=== PATIENT | male | born 1945 | race Caucasian/White ===

== ENCOUNTER 2023-07-31 17:02 | Inpatient (IN) | payer MEDICARE ==
[2023-07-31 18:05] LABS: #Monocytes 0.4 thou/uL (0.11-0.59); #Neutrophils 7.3 thou/uL (1.40-6.50); %Basophils 0.5 % (0.0-1.0); %Eosinophils 0.1 % (0.0-10.0); %Monocytes 5.1 % (0.0-10.0); %Neutrophils 86.9 % (42.0-75.0); Hematocrit 18.7 % (42.0-52.0); Hemoglobin 6.3 g/dL (14.0-18.0); Mean Corpuscular HGB CONC 33.7 g/dL (32.0-36.0); Mean Corpuscular Hemoglobin 30.6 pg (27.0-31.0); Mean Corpuscular Volume 90.8 fl (78.0-98.0); Mean Platelet Volume 9.4 fL (7.4-10.4); Platelet Count 332 10x3/uL (130-400); RBC Distribution Width 13.1 % (11.5-14.5); Red Blood Cell (RBC) Count 2.06 mill/uL (4.70-6.10); White Blood Cell (WBC) Count 8.4 10x3/uL (4.8-10.8)
[2023-07-31 18:21] LABS: INR-International Normal Ratio 1.2; PTT 26.5 sec (22.9-36.1); Prothrombin Time 15.2 sec (12.0-14.7)
[2023-07-31 18:22] LABS: D-Dimer Test 3.85 mcg/mL (0.27-0.43)
[2023-07-31 18:29] LABS: ALT (SGPT) 8 U/L (8-55); AST (SGOT) 10 U/L (5-34); Albumin 4.5 g/dL (3.4-4.8); Alkaline Phosphatase 59 U/L (40-110); Anion Gap 19 mmol/L (10-20); BUN (Urea Nitrogen) 89 mg/dL (8.4-25.7); Bilirubin, Total 0.3 mg/dL (0.2-1.2); Calc. Creatinine Clearance 0 mL/min (70-130); Calcium 10.3 mg/dL (7.8-10.44); Carbon Dioxide 15 mmol/L (23-31); Chloride 108 mmol/L (98-107); Estimated GFR 9; Globulin 2.9 g/dL (2.4-3.5); Glucose 188 mg/dL (83-110); Potassium 5.4 mmol/L (3.5-5.1); Protein, Total 7.4 g/dL (5.8-8.1); Sodium 137 mmol/L (136-145)
[2023-07-31 18:33] LABS: Troponin I 0.015 ng/mL (< 0.028)
[2023-07-31] MEDS ORDERED: Furosemide 100 MG (10 mL) VIAL ONE (19:24)
[2023-07-31 21:04] LABS: Bacteria/HPF None Seen HPF (None Seen); Bilirubin Negative (Negative); Blood, Urine Negative (Negative); CAUTI Indications for Culture Pelvic or flank pain; Clarity Clear (Clear); Glucose, Urine (Dipstick) 30 mg/dL (Negative); Ketone, Urine Negative (Negative); Leukocyte Negative Leu/uL (Negative); Nitrite Negative (Negative); Protein, Urine (Dipstick) 10 mg/dL (Neg-Trace); RBC/HPF 0-3 HPF (0-3); Specific Gravity, Urine 1.008 (1.002-1.036); Squamous Epithelial None Seen HPF (0-3); Urobilinogen Normal mg/dL (Less than 2); WBC/HPF 0-3 HPF (0-3); pH, Urine 6.5 (5.0-9.0)
[2023-07-31 21:06] LABS: Urine Culture Reflex No No
[2023-07-31] MEDS ORDERED: Senokot S 8.6-50 MG TAB PO PRN (21:54)
[2023-07-31 21:56] LABS: Troponin I 0.026 ng/mL (< 0.028)
[2023-07-31] MEDS: Tamsulosin HCl 0.4 MG CAP PO SCH (22:37)
[2023-08-01] MEDS: fentaNYL 50 mcg/mL 1 mL Vial SLOW IVP SCH (00:26)
[2023-08-01 00:44] LABS: Troponin I 0.019 ng/mL (< 0.028)
[2023-08-01] MEDS: Pantoprazole 40 MG VIAL IVP SCH ×2 (00:57→10:21)
[2023-08-01] MEDS ORDERED: fentaNYL 50 mcg/mL 1 mL Vial SLOW IVP PRN (01:01)
[2023-08-01 05:46] LABS: #Monocytes 1.3 thou/uL (0.11-0.59); #Neutrophils 10.5 thou/uL (1.40-6.50); %Basophils 0.2 % (0.0-1.0); %Eosinophils 0.1 % (0.0-10.0); %Lymphocytes 9.4 % (21.0-51.0); %Monocytes 9.7 % (0.0-10.0); %Neutrophils 80.1 % (42.0-75.0); Hematocrit 19.2 % (42.0-52.0); Hemoglobin 6.3 g/dL (14.0-18.0); Mean Corpuscular HGB CONC 32.8 g/dL (32.0-36.0); Mean Corpuscular Volume 91.4 fl (78.0-98.0); Platelet Count 295 10x3/uL (130-400); RBC Distribution Width 13.2 % (11.5-14.5); White Blood Cell (WBC) Count 13.1 10x3/uL (4.8-10.8)
[2023-08-01 06:00] LABS: Hemoglobin A1c 5.1 % (4.0-6.0)
[2023-08-01 06:15] LABS: Albumin 3.8 g/dL (3.4-4.8)
[2023-08-01 06:16] LABS: Chloride 113 mmol/L (98-107); Potassium 5.5 mmol/L (3.5-5.1); Sodium 139 mmol/L (136-145)
[2023-08-01 06:17] LABS: Calcium 9.1 mg/dL (7.8-10.44)
[2023-08-01 06:18] LABS: Globulin 2.2 g/dL (2.4-3.5); Glucose 153 mg/dL (83-110)
[2023-08-01 06:19] LABS: Anion Gap 17 mmol/L (10-20); Carbon Dioxide 15 mmol/L (23-31)
[2023-08-01 06:20] LABS: Alkaline Phosphatase 45 U/L (40-110)
[2023-08-01 06:21] LABS: Calc. Creatinine Clearance 11 mL/min (70-130); Estimated GFR 9
[2023-08-01 06:22] LABS: BUN (Urea Nitrogen) 88 mg/dL (8.4-25.7)
[2023-08-01 06:23] LABS: AST (SGOT) 8 U/L (5-34)
[2023-08-01 06:24] LABS: ALT (SGPT) 7 U/L (8-55)
[2023-08-01 06:25] LABS: Cardiac Risk 3.8 (Less than 4.5)
[2023-08-01 06:29] LABS: Bilirubin, Total 0.6 mg/dL (0.2-1.2)
[2023-08-01 06:32] LABS: Ferritin 88.26 ng/mL (22-322); Thyroid Stimulating Hormone 0.8644 uIU/mL (0.35-4.94)
[2023-08-01 06:57] LABS: Iron 36 ug/dL (65-175); Iron Binding Capacity, Total 241 mcg/dL (261-462); Transferrin, Serum 193 mg/dL (163-344)
[2023-08-01 07:55] LABS: Hematocrit 21.2 % (42.0-52.0)
[2023-08-01] MEDS ORDERED: Furosemide 40 MG (4 mL) VIAL SLOW IVP SCH (09:00)
[2023-08-01] MEDS ORDERED: Amlodipine 10 MG TAB PO SCH (09:00)
[2023-08-01] MEDS: Sodium Polystyrene Sulfonate 15 GM (60 mL) BOT PO SCH (10:21)
[2023-08-01] MEDS: Tamsulosin HCl 0.4 MG CAP PO SCH (10:25)
[2023-08-01 11:52] LABS: Hematocrit 21.6 % (42.0-52.0); Hemoglobin 7.1 g/dL (14.0-18.0); Platelet Count 292 10x3/uL (130-400)
[2023-08-01 12:09] LABS: Sodium, Urine 95 mmol/L (Not Available)
[2023-08-01 12:12] LABS: Creatinine, Urine Less than 20.00 mg/dL (63-166)
[2023-08-01 16:23] LABS: Hematocrit 17.2 % (42.0-52.0); Hemoglobin 5.7 g/dL (14.0-18.0); Platelet Count 221 10x3/uL (130-400)
[2023-08-01 16:25] LABS: Critical Call w/ Read Back NUR.CK7@1625
[2023-08-01] MEDS: Rosuvastatin 20 MG TAB PO SCH (20:51)
[2023-08-01 23:43] LABS: #Monocytes 1.9 thou/uL (0.11-0.59); #Neutrophils 12.1 thou/uL (1.40-6.50); %Basophils 0.2 % (0.0-1.0); %Eosinophils 0.1 % (0.0-10.0); %Lymphocytes 7.2 % (21.0-51.0); %Monocytes 12.5 % (0.0-10.0); %Neutrophils 79.4 % (42.0-75.0); Hematocrit 22.9 % (42.0-52.0); Hemoglobin 7.8 g/dL (14.0-18.0); Mean Corpuscular HGB CONC 34.1 g/dL (32.0-36.0); Mean Corpuscular Hemoglobin 29.9 pg (27.0-31.0); Mean Platelet Volume 9.9 fL (7.4-10.4); Platelet Count 222 10x3/uL (130-400); RBC Distribution Width 14.6 % (11.5-14.5); Red Blood Cell (RBC) Count 2.61 mill/uL (4.70-6.10); White Blood Cell (WBC) Count 15.2 10x3/uL (4.8-10.8)
[2023-08-01 23:46] LABS: Mean Corpuscular Volume 87.7 fl (78.0-98.0)
[2023-08-01 23:57] LABS: Anion Gap 16 mmol/L (10-20); BUN (Urea Nitrogen) 86 mg/dL (8.4-25.7); Calc. Creatinine Clearance 12 mL/min (70-130); Calcium 8.1 mg/dL (7.8-10.44); Carbon Dioxide 14 mmol/L (23-31); Chloride 110 mmol/L (98-107); Estimated GFR 10; Glucose 119 mg/dL (83-110); Sodium 135 mmol/L (136-145)
[2023-08-02] MEDS: Furosemide 20 MG (2 mL) VIAL SLOW IVP SCH (00:39)
[2023-08-02] MEDS: Acetaminophen 325 MG TAB PO PRN (03:20)
[2023-08-02] MEDS: fentaNYL 50 mcg/mL 1 mL Vial SLOW IVP PRN (04:53)
[2023-08-02 05:21] LABS: #Monocytes 1.7 thou/uL (0.11-0.59); #Neutrophils 10.9 thou/uL (1.40-6.50); %Basophils 0.2 % (0.0-1.0); %Eosinophils 0.2 % (0.0-10.0); %Monocytes 11.9 % (0.0-10.0); Hematocrit 23.1 % (42.0-52.0); Hemoglobin 7.7 g/dL (14.0-18.0); Mean Corpuscular HGB CONC 33.3 g/dL (32.0-36.0); Mean Corpuscular Hemoglobin 29.1 pg (27.0-31.0); Mean Corpuscular Volume 87.2 fl (78.0-98.0); Mean Platelet Volume 10.2 fL (7.4-10.4); Platelet Count 213 10x3/uL (130-400); RBC Distribution Width 14.8 % (11.5-14.5); Red Blood Cell (RBC) Count 2.65 mill/uL (4.70-6.10); White Blood Cell (WBC) Count 13.8 10x3/uL (4.8-10.8)
[2023-08-02 05:36] LABS: Albumin 3.2 g/dL (3.4-4.8); Anion Gap 15 mmol/L (10-20); BUN (Urea Nitrogen) 86 mg/dL (8.4-25.7); BUN/Creatinine Ratio 15.14; Calc. Creatinine Clearance 12 mL/min (70-130); Calcium 8.2 mg/dL (7.8-10.44); Carbon Dioxide 16 mmol/L (23-31); Chloride 109 mmol/L (98-107); Estimated GFR 10; Glucose 127 mg/dL (83-110); Phosphorus 6.8 mg/dL (2.3-4.7); Potassium 4.8 mmol/L (3.5-5.1); Sodium 135 mmol/L (136-145)
[2023-08-02] MEDS ORDERED: Sodium Bicarbonate 2.5 MEQ/5 ML SDV ONE (09:25)
[2023-08-02] MEDS ORDERED: Iopamidol 100 ML FS ONE (09:41)
[2023-08-02] MEDS ORDERED: Sodium Chloride 0.9% 500 ML ONE (09:41)
[2023-08-02] MEDS ORDERED: Midazolam HCl 2 mg/2 ml Vial ONE (10:55)
[2023-08-02] MEDS ORDERED: fentaNYL 50 mcg/mL 1 mL Vial ONE (10:56)
[2023-08-02] MEDS: Finasteride 5 MG TAB PO SCH (13:02)
[2023-08-03 04:56] LABS: #Monocytes 1.6 thou/uL (0.11-0.59); #Neutrophils 9.8 thou/uL (1.40-6.50); %Basophils 0.2 % (0.0-1.0); %Eosinophils 0.3 % (0.0-10.0); %Lymphocytes 9.3 % (21.0-51.0); %Monocytes 12.3 % (0.0-10.0); %Neutrophils 77.3 % (42.0-75.0); Hematocrit 23.8 % (42.0-52.0); Hemoglobin 8.1 g/dL (14.0-18.0); Mean Corpuscular Hemoglobin 30.2 pg (27.0-31.0); Mean Corpuscular Volume 88.8 fl (78.0-98.0); Mean Platelet Volume 10.2 fL (7.4-10.4); Platelet Count 214 10x3/uL (130-400); RBC Distribution Width 14.6 % (11.5-14.5); Red Blood Cell (RBC) Count 2.68 mill/uL (4.70-6.10); White Blood Cell (WBC) Count 12.6 10x3/uL (4.8-10.8)
[2023-08-03 05:25] LABS: Albumin 3.1 g/dL (3.4-4.8); Anion Gap 16 mmol/L (10-20); BUN (Urea Nitrogen) 81 mg/dL (8.4-25.7); BUN/Creatinine Ratio 15.25; Calc. Creatinine Clearance 13 mL/min (70-130); Calcium 8.3 mg/dL (7.8-10.44); Carbon Dioxide 18 mmol/L (23-31); Chloride 107 mmol/L (98-107); Estimated GFR 10; Glucose 117 mg/dL (83-110); Phosphorus 6.4 mg/dL (2.3-4.7); Potassium 4.8 mmol/L (3.5-5.1); Sodium 136 mmol/L (136-145)
[2023-08-03] MEDS: Pantoprazole 40 MG VIAL IVP SCH (09:48)
[2023-08-03] MEDS: Calcium Acetate 667 MG CAP PO SCH (12:33)
[2023-08-03] MEDS ORDERED: Iopamidol 100 ML FS ONE (13:20)
[2023-08-03] MEDS ORDERED: Sodium Chloride 0.9% 500 ML ONE (13:25)
[2023-08-03] MEDS ORDERED: Sodium Bicarbonate 2.5 MEQ/5 ML SDV ONE (14:18)
[2023-08-03] MEDS ORDERED: Lidocaine 1% PF 5 ML VIAL ONE (14:18)
[2023-08-04 06:43] LABS: #Basophils 0.1 thou/uL (0.0-0.2); #Eosinphils 0.2 thou/uL (0.0-0.7); #Monocytes 1.7 thou/uL (0.11-0.59); #Neutrophils 9.7 thou/uL (1.40-6.50); %Basophils 0.5 % (0.0-1.0); %Eosinophils 1.3 % (0.0-10.0); %Lymphocytes 9.1 % (21.0-51.0); %Monocytes 13.2 % (0.0-10.0); %Neutrophils 75.1 % (42.0-75.0); Hematocrit 22.4 % (42.0-52.0); Hemoglobin 7.7 g/dL (14.0-18.0); Mean Corpuscular HGB CONC 34.4 g/dL (32.0-36.0); Mean Corpuscular Hemoglobin 29.3 pg (27.0-31.0); Mean Corpuscular Volume 85.2 fl (78.0-98.0); Platelet Count 251 10x3/uL (130-400); RBC Distribution Width 13.7 % (11.5-14.5); Red Blood Cell (RBC) Count 2.63 mill/uL (4.70-6.10); White Blood Cell (WBC) Count 12.9 10x3/uL (4.8-10.8)
[2023-08-04 06:58] LABS: Albumin 3.3 g/dL (3.4-4.8); Anion Gap 14 mmol/L (10-20); BUN (Urea Nitrogen) 77 mg/dL (8.4-25.7); BUN/Creatinine Ratio 16.42; Calc. Creatinine Clearance 14 mL/min (70-130); Calcium 8.6 mg/dL (7.8-10.44); Carbon Dioxide 19 mmol/L (23-31); Chloride 106 mmol/L (98-107); Estimated GFR 12; Glucose 110 mg/dL (83-110); Phosphorus 5.5 mg/dL (2.3-4.7); Potassium 4.9 mmol/L (3.5-5.1); Sodium 134 mmol/L (136-145)
[2023-08-04] MEDS: Polyethylene Glycol 3350 17 GM Packet PO PRN (17:29)
[2023-08-05 05:46] LABS: #Eosinphils 0.2 thou/uL (0.0-0.7); #Monocytes 1.5 thou/uL (0.11-0.59); #Neutrophils 8.7 thou/uL (1.40-6.50); %Basophils 0.3 % (0.0-1.0); %Eosinophils 1.8 % (0.0-10.0); %Lymphocytes 10.5 % (21.0-51.0); %Monocytes 12.9 % (0.0-10.0); %Neutrophils 73.4 % (42.0-75.0); Hematocrit 19.4 % (42.0-52.0); Hemoglobin 6.6 g/dL (14.0-18.0); Mean Corpuscular Hemoglobin 29.7 pg (27.0-31.0); Mean Corpuscular Volume 87.4 fl (78.0-98.0); Mean Platelet Volume 10.4 fL (7.4-10.4); Platelet Count 264 10x3/uL (130-400); RBC Distribution Width 13.6 % (11.5-14.5); Red Blood Cell (RBC) Count 2.22 mill/uL (4.70-6.10); White Blood Cell (WBC) Count 11.9 10x3/uL (4.8-10.8)
[2023-08-05 06:36] LABS: Anion Gap 14 mmol/L (10-20); BUN (Urea Nitrogen) 82 mg/dL (8.4-25.7); BUN/Creatinine Ratio 18.68; Calc. Creatinine Clearance 15 mL/min (70-130); Carbon Dioxide 18 mmol/L (23-31); Chloride 102 mmol/L (98-107); Estimated GFR 13; Glucose 107 mg/dL (83-110); Phosphorus 5.8 mg/dL (2.3-4.7); Potassium 4.2 mmol/L (3.5-5.1); Sodium 130 mmol/L (136-145)
[2023-08-05 17:49] LABS: Hematocrit 21.5 % (42.0-52.0); Hemoglobin 7.4 g/dL (14.0-18.0); Platelet Count 280 10x3/uL (130-400)
[2023-08-05] MEDS: Senokot S 8.6-50 MG TAB PO SCH (20:39)
[2023-08-06 05:53] LABS: #Eosinphils 0.2 thou/uL (0.0-0.7); #Monocytes 1.5 thou/uL (0.11-0.59); #Neutrophils 8.2 thou/uL (1.40-6.50); %Basophils 0.4 % (0.0-1.0); %Eosinophils 1.3 % (0.0-10.0); %Lymphocytes 10.5 % (21.0-51.0); %Monocytes 13.1 % (0.0-10.0); %Neutrophils 72.9 % (42.0-75.0); Hematocrit 22.4 % (42.0-52.0); Hemoglobin 7.4 g/dL (14.0-18.0); Mean Corpuscular Hemoglobin 28.2 pg (27.0-31.0); Mean Corpuscular Volume 85.5 fl (78.0-98.0); Mean Platelet Volume 10.2 fL (7.4-10.4); Platelet Count 319 10x3/uL (130-400); RBC Distribution Width 15.9 % (11.5-14.5); Red Blood Cell (RBC) Count 2.62 mill/uL (4.70-6.10); White Blood Cell (WBC) Count 11.3 10x3/uL (4.8-10.8)
[2023-08-06] MEDS: Polyethylene Glycol 3350 17 GM Packet PO SCH (07:47)
[2023-08-06] MEDS ORDERED: cefTRIAXone\\ROCEPHIN 1 GM in Sodium Chloride 0.9% 100 ML IVPB SCH (09:00)
[2023-08-07 04:31] LABS: #Eosinphils 0.1 thou/uL (0.0-0.7); #Monocytes 1.4 thou/uL (0.11-0.59); #Neutrophils 9.4 thou/uL (1.40-6.50); %Basophils 0.3 % (0.0-1.0); %Lymphocytes 10.4 % (21.0-51.0); %Monocytes 11.5 % (0.0-10.0); Hematocrit 19.7 % (42.0-52.0); Hemoglobin 6.8 g/dL (14.0-18.0); Mean Corpuscular HGB CONC 34.5 g/dL (32.0-36.0); Mean Corpuscular Hemoglobin 29.1 pg (27.0-31.0); Mean Corpuscular Volume 84.2 fl (78.0-98.0); Mean Platelet Volume 10.4 fL (7.4-10.4); Platelet Count 341 10x3/uL (130-400); RBC Distribution Width 15.4 % (11.5-14.5); Red Blood Cell (RBC) Count 2.34 mill/uL (4.70-6.10); White Blood Cell (WBC) Count 12.5 10x3/uL (4.8-10.8)
[2023-08-07 04:56] LABS: Anion Gap 14 mmol/L (10-20); BUN (Urea Nitrogen) 80 mg/dL (8.4-25.7); Calc. Creatinine Clearance 17 mL/min (70-130); Calcium 8.2 mg/dL (7.8-10.44); Carbon Dioxide 17 mmol/L (23-31); Chloride 102 mmol/L (98-107); Estimated GFR 15; Glucose 114 mg/dL (83-110); Potassium 4.4 mmol/L (3.5-5.1); Sodium 129 mmol/L (136-145)
[2023-08-07 11:22] LABS: Creatinine, Urine 51.56 mg/dL (63-166)
[2023-08-07] MEDS ORDERED: SUGAMMADEX SODIUM 200 MG/2 ML VIAL ONE (12:20)
[2023-08-07] MEDS ORDERED: Ondansetron PF 4 MG/2 ML Vial ONE (12:20)
[2023-08-07] MEDS ORDERED: fentaNYL PF 100 MCG/2 ML SYRINGE ONE (12:20)
[2023-08-07] MEDS ORDERED: PROPOFOL 40 ML ONE (12:20)
[2023-08-07] MEDS ORDERED: Lidocaine 1% PF 5 ML VIAL ONE (12:20)
[2023-08-07] MEDS ORDERED: Rocuronium Bromide 10 MG/ML (10ML VIAL) ONE (12:20)
[2023-08-07] MEDS ORDERED: Dexamethasone 4 mg/ml Vial ONE (12:20)
[2023-08-07] MEDS ORDERED: Phenylephrine 10 MG/ML VIAL ONE (12:23)
[2023-08-07] MEDS ORDERED: ePHEDrine Sulfate 50 MG/10 ML VIAL ONE (12:23)
[2023-08-07 12:41] LABS: Hematocrit 25.6 % (42.0-52.0); Hemoglobin 8.8 g/dL (14.0-18.0); Platelet Count 362 10x3/uL (130-400)
[2023-08-07] MEDS ORDERED: Sodium Chloride 0.9% 100 ML ONE (12:42)
[2023-08-07] MEDS ORDERED: cefTRIAXone (ROCEPHIN) 1 GM VIAL ONE (12:42)
[2023-08-07 14:08] VITALS: BMI 24.7
[2023-08-07] MEDS ORDERED: fentaNYL 50 mcg/mL 1 mL Vial ONE ×2 (15:02→15:37)
[2023-08-07 17:03] LABS: Ref Lab Test Ordered SERUM OSMO; Reference Lab Name LABCORP
[2023-08-08 05:24] LABS: #Eosinphils 0.1 thou/uL (0.0-0.7); #Monocytes 1.8 thou/uL (0.11-0.59); %Basophils 0.1 % (0.0-1.0); %Eosinophils 0.4 % (0.0-10.0); %Lymphocytes 7.3 % (21.0-51.0); %Monocytes 12.7 % (0.0-10.0); %Neutrophils 77.7 % (42.0-75.0); Hematocrit 21.7 % (42.0-52.0); Hemoglobin 7.7 g/dL (14.0-18.0); Mean Corpuscular HGB CONC 35.5 g/dL (32.0-36.0); Mean Corpuscular Hemoglobin 29.8 pg (27.0-31.0); Mean Corpuscular Volume 84.1 fl (78.0-98.0); Mean Platelet Volume 9.8 fL (7.4-10.4); Platelet Count 356 10x3/uL (130-400); RBC Distribution Width 14.6 % (11.5-14.5); Red Blood Cell (RBC) Count 2.58 mill/uL (4.70-6.10); White Blood Cell (WBC) Count 14.2 10x3/uL (4.8-10.8)
[2023-08-08 05:44] LABS: Anion Gap 15 mmol/L (10-20); BUN (Urea Nitrogen) 65 mg/dL (8.4-25.7); Calc. Creatinine Clearance 20 mL/min (70-130); Calcium 8.2 mg/dL (7.8-10.44); Carbon Dioxide 18 mmol/L (23-31); Chloride 102 mmol/L (98-107); Estimated GFR 19; Glucose 114 mg/dL (83-110); Potassium 4.4 mmol/L (3.5-5.1); Sodium 131 mmol/L (136-145)
[2023-08-09 06:19] LABS: #Basophils 0.1 thou/uL (0.0-0.2); #Eosinphils 0.1 thou/uL (0.0-0.7); #Monocytes 1.9 thou/uL (0.11-0.59); #Neutrophils 9.9 thou/uL (1.40-6.50); %Basophils 0.4 % (0.0-1.0); %Lymphocytes 8.5 % (21.0-51.0); %Monocytes 13.8 % (0.0-10.0); %Neutrophils 73.6 % (42.0-75.0); Hematocrit 22.6 % (42.0-52.0); Hemoglobin 7.6 g/dL (14.0-18.0); Mean Corpuscular HGB CONC 33.6 g/dL (32.0-36.0); Mean Corpuscular Hemoglobin 28.9 pg (27.0-31.0); Mean Corpuscular Volume 85.9 fl (78.0-98.0); Platelet Count 422 10x3/uL (130-400); RBC Distribution Width 14.7 % (11.5-14.5); Red Blood Cell (RBC) Count 2.63 mill/uL (4.70-6.10); White Blood Cell (WBC) Count 13.5 10x3/uL (4.8-10.8)
[2023-08-09 06:46] LABS: Anion Gap 14 mmol/L (10-20); BUN (Urea Nitrogen) 66 mg/dL (8.4-25.7); Calc. Creatinine Clearance 20 mL/min (70-130); Calcium 8.5 mg/dL (7.8-10.44); Carbon Dioxide 21 mmol/L (23-31); Chloride 103 mmol/L (98-107); Estimated GFR 19; Glucose 105 mg/dL (83-110); Potassium 4.7 mmol/L (3.5-5.1); Sodium 133 mmol/L (136-145)
[2023-08-09 12:24] LABS: Magnesium 2.1 mg/dL (1.6-2.6); Phosphorus 3.8 mg/dL (2.3-4.7)
[2023-08-10 05:05] LABS: #Basophils 0.1 thou/uL (0.0-0.2); #Eosinphils 0.1 thou/uL (0.0-0.7); #Monocytes 2.1 thou/uL (0.11-0.59); %Basophils 0.3 % (0.0-1.0); %Eosinophils 0.6 % (0.0-10.0); %Lymphocytes 9.6 % (21.0-51.0); %Monocytes 14.1 % (0.0-10.0); Hemoglobin 7.1 g/dL (14.0-18.0); Mean Corpuscular HGB CONC 33.8 g/dL (32.0-36.0); Mean Corpuscular Hemoglobin 29.6 pg (27.0-31.0); Mean Corpuscular Volume 87.5 fl (78.0-98.0); Mean Platelet Volume 9.7 fL (7.4-10.4); Platelet Count 417 10x3/uL (130-400); RBC Distribution Width 14.5 % (11.5-14.5); White Blood Cell (WBC) Count 15.1 10x3/uL (4.8-10.8)
[2023-08-10 05:20] LABS: Anion Gap 15 mmol/L (10-20); BUN (Urea Nitrogen) 70 mg/dL (8.4-25.7); Calc. Creatinine Clearance 20 mL/min (70-130); Calcium 8.3 mg/dL (7.8-10.44); Carbon Dioxide 19 mmol/L (23-31); Chloride 103 mmol/L (98-107); Estimated GFR 20; Glucose 103 mg/dL (83-110); Potassium 4.6 mmol/L (3.5-5.1); Sodium 132 mmol/L (136-145)
[2023-08-10 16:21] VITALS: BP 118/67; TEMP 98.3
== END 2023-08-10 17:58 | disposition home or self-care (01) | DRG 665 ==
LOC: ERS 17:02 → 2SW 20:41 → CCU 08-01 20:01 → IMCU/EMU 08-03 15:52 → T4-A 08-09 18:01
PROVIDERS: ADMIT Student in an Organized Health Care Education/Training Program; ATTEND Student in an Organized Health Care Education/Training Program
PROC: 30233N1 Transfusion of Nonautologous Red Blood Cells into Peripheral Vein, Percutaneous Approach (ICD-10-PCS; 2023-08-01)
PROC: 0T903ZZ Drainage of Right Kidney, Percutaneous Approach (ICD-10-PCS; 2023-08-02)
PROC: 0T903ZZ Drainage of Right Kidney, Percutaneous Approach (ICD-10-PCS; 2023-08-03)
PROC: 3E033XZ Introduction of Vasopressor into Peripheral Vein, Percutaneous Approach (ICD-10-PCS; 2023-08-07)
PROC: 0VT08ZZ Resection of Prostate, Via Natural or Artificial Opening Endoscopic (ICD-10-PCS; principal; 2023-08-09)
PROC: BT141ZZ Fluoroscopy of Kidneys, Ureters and Bladder using Low Osmolar Contrast (ICD-10-PCS; 2023-08-09)
DX: N17.9 Acute kidney failure, unspecified (principal); J18.9 Pneumonia, unspecified organism; R57.1 Hypovolemic shock; D62 Acute posthemorrhagic anemia; I13.0 Hypertensive heart and chronic kidney disease with heart failure and stage 1 through stage 4 chronic kidney disease, or unspecified chronic kidney disease; K86.2 Cyst of pancreas; N13.8 Other obstructive and reflux uropathy; I50.32 Chronic diastolic (congestive) heart failure; E87.1 Hypo-osmolality and hyponatremia; E87.20 Acidosis, unspecified; N40.1 Benign prostatic hyperplasia with lower urinary tract symptoms; N13.30 Unspecified hydronephrosis; K80.50 Calculus of bile duct without cholangitis or cholecystitis without obstruction; N32.89 Other specified disorders of bladder; F17.200 Nicotine dependence, unspecified, uncomplicated; I50.9 Heart failure, unspecified; R33.9 Retention of urine, unspecified; R53.81 Other malaise; R55 Syncope and collapse; E87.5 Hyperkalemia; R31.9 Hematuria, unspecified; R31.0 Gross hematuria; N18.9 Chronic kidney disease, unspecified; D63.1 Anemia in chronic kidney disease; E83.39 Other disorders of phosphorus metabolism; Z98.890 Other specified postprocedural states; Z82.49 Family history of ischemic heart disease and other diseases of the circulatory system
CPT/HCPCS: 36415; 36416; 36430; 50431; 50433; 51702; 71045; 74018; 74176; 74420; 76770; 76942; 80048; 80053; 80061; 80069; 81001; 82274; 82570; 82728; 83036; 83540; 83550; 83735; 83880; 83970; 84100; 84153; 84156; 84300; 84443; 84466; 84484; 84540; 85025; 85379; 85610; 85730; 86850; 86900; 86901; 88305; 93005; 93010; 93306; 96374; 99153; A4333; C9113; J0696; J1100; J1940; J2250; J2371; J2405; J2704; J3010; J3490; J7030; P9016; Q9967

== ENCOUNTER → 2023-10-03 | Day surgery (SDC) | payer MEDICARE | LOC: SPEC 07:07 | PROVIDERS: ATTEND Urology | PROC: 0T25X0Z Change Drainage Device in Kidney, External Approach (ICD-10-PCS; principal; 2023-10-03) | DX: N13.30 Unspecified hydronephrosis (principal) | CPT/HCPCS: 50435; 75984; C1729; J7030; Q9967 ==

== ENCOUNTER 2023-12-17 12:55 | Outpatient (CLI) | payer MEDICARE | END 2023-12-17 12:56 | disposition home or self-care (01) | LOC: BICULT 12:55 | PROVIDERS: ATTEND Urology | DX: N13.39 Other hydronephrosis (principal); N28.1 Cyst of kidney, acquired; N40.0 Benign prostatic hyperplasia without lower urinary tract symptoms; N28.89 Other specified disorders of kidney and ureter | CPT/HCPCS: 76770 ==

== ENCOUNTER 2023-12-24 07:01 | Day surgery (SDC) | payer MEDICARE ==
[2023-12-24] MEDS ORDERED: Sodium Bicarbonate 2.5 MEQ/5 ML SDV ONE (07:21)
[2023-12-24] MEDS ORDERED: Sodium Chloride 0.9% 500 ML ONE (07:22)
[2023-12-24] MEDS ORDERED: Iopamidol 30 ML ONE (07:22)
[2023-12-24] MEDS ORDERED: Lidocaine 1% PF 5 ML VIAL ONE (08:08)
== END 2023-12-24 08:40 | disposition home or self-care (01) ==
LOC: SPEC 07:01
PROVIDERS: ATTEND Urology
PROC: 0T25X0Z Change Drainage Device in Kidney, External Approach (ICD-10-PCS; principal; 2023-12-24)
DX: N13.39 Other hydronephrosis (principal)
CPT/HCPCS: 50435; 75984; C1729; C1769; J7030; Q9967

== ENCOUNTER → 2024-02-20 | Day surgery (SDC) | payer MEDICARE ==
[~2024-02-20] MED LIST: Iopamidol 100 ML FS ONE; Sodium Bicarbonate 0.5 MEQ/ML SDV 10 ML ONE; Sodium Chloride 0.9% 500 ML ONE
== END ==
LOC: SPEC 07:01
PROVIDERS: ATTEND Urology
PROC: 0T25X0Z Change Drainage Device in Kidney, External Approach (ICD-10-PCS; principal; 2024-02-20)
DX: N13.39 Other hydronephrosis (principal)
CPT/HCPCS: 50435; 75984; C1769; J7030; Q9967

== ENCOUNTER 2024-04-23 07:15 | Day surgery (SDC) | payer MEDICARE ==
[2024-04-23] MEDS ORDERED: Sodium Bicarbonate 2.5 MEQ/5 ML SDV ONE (07:33)
[2024-04-23] MEDS ORDERED: Lidocaine 1% w/Epinephrine 1:100K 20 ML VIAL ONE (07:33)
[2024-04-23] MEDS ORDERED: Iopamidol 300 61% 30 ML VIAL ONE (07:33)
[2024-04-23] MEDS ORDERED: Sodium Chloride 0.9% 500 ML BAG (BAXTER) ONE (07:33)
== END 2024-04-23 13:00 | disposition home or self-care (01) ==
LOC: SPEC 07:15
PROVIDERS: ATTEND Urology
PROC: 0T25X0Z Change Drainage Device in Kidney, External Approach (ICD-10-PCS; principal; 2024-04-23)
DX: N13.1 Hydronephrosis with ureteral stricture, not elsewhere classified (principal)
CPT/HCPCS: 50435; 75984; C1729; C1769; J7030; Q9967

== ENCOUNTER 2024-06-24 07:12 | Day surgery (SDC) | payer MEDICARE ==
[2024-06-24 08:00] LABS: #Basophils 0.05 10x3/uL (0.0-0.2); %Basophils 0.5 % (0.0-1.0); %Eosinophils 0.7 % (0.0-10.0); %Lymphocytes 12.8 % (21.0-51.0); %Monocytes 12.7 % (0.0-10.0); %Neutrophils 72.7 % (42.0-75.0); Hematocrit 30.1 % (42.0-52.0); Hemoglobin 9.8 g/dL (14.0-18.0); Mean Corpuscular HGB CONC 32.6 g/dL (32.0-36.0); Mean Corpuscular Hemoglobin 28.8 pg (27.0-31.0); Mean Corpuscular Volume 88.5 fL (78.0-98.0); Platelet Count 336 10x3/uL (130-400); RBC Distribution Width 13.6 % (11.5-14.5)
[2024-06-24] MEDS ORDERED: Sodium Bicarbonate 2.5 MEQ/5 ML SDV ONE (08:04)
[2024-06-24] MEDS ORDERED: Lidocaine 1% w/Epinephrine 1:100K 20 ML VIAL ONE (08:04)
[2024-06-24] MEDS ORDERED: IOPAMIDOL FS ONE (08:04)
[2024-06-24] MEDS ORDERED: Sodium Chloride 0.9% 500 ML ONE (08:04)
[2024-06-24 08:14] LABS: Anion Gap 14 mmol/L (10-20); BUN (Urea Nitrogen) 52 mg/dL (8.4-25.7); Calc. Creatinine Clearance 0 mL/min (70-130); Calcium 9.2 mg/dL (7.8-10.44); Carbon Dioxide 17 mmol/L (23-31); Chloride 112 mmol/L (98-107); Estimated GFR 23; Glucose 113 mg/dL (83-110); INR-International Normal Ratio 1.1; PTT 32.2 sec (22.9-36.1); Potassium 5.3 mmol/L (3.5-5.1); Prothrombin Time 14.7 sec (12.0-14.7); Sodium 138 mmol/L (136-145)
[2024-06-24] MEDS ORDERED: cefTRIAXone\\ROCEPHIN 1 GM in Sodium Chloride 0.9% 100 ML IVPB SCH (08:30)
[2024-06-24] MEDS ORDERED: fentaNYL 50 mcg/mL 1 mL Vial ONE (10:08)
[2024-06-24] MEDS ORDERED: Midazolam HCl 2 mg/2 ml Vial ONE (10:08)
[2024-06-24] MEDS ORDERED: diphenhydrAMINE 50 MG/ML VIAL ONE (10:08)
[2024-06-24] MEDS ORDERED: Ondansetron PF 4 MG/2 ML Vial ONE (10:08)
== END 2024-06-24 14:00 | disposition home or self-care (01) ==
LOC: SPEC 07:12
PROVIDERS: ATTEND Urology
PROC: 0T25X0Z Change Drainage Device in Kidney, External Approach (ICD-10-PCS; principal; 2024-06-24)
DX: N13.30 Unspecified hydronephrosis (principal); N40.1 Benign prostatic hyperplasia with lower urinary tract symptoms; R33.8 Other retention of urine; I12.9 Hypertensive chronic kidney disease with stage 1 through stage 4 chronic kidney disease, or unspecified chronic kidney disease; N18.32 Chronic kidney disease, stage 3b; D63.1 Anemia in chronic kidney disease; Z87.891 Personal history of nicotine dependence; Z79.899 Other long term (current) drug therapy
CPT/HCPCS: 50435; 74485; 75984; 80048; 85025; 85610; 85730; C1769 ×3; C1887; J0696; J7030; Q9967; 36415; J1200; J2250; J2405; J3010

== ENCOUNTER 2025-03-25 08:40 | Day surgery (SDC) | payer MEDICARE ==
[2025-03-25] MEDS ORDERED: Lidocaine 1% w/Epinephrine 1:100K 20 ML VIAL ONE (09:02)
[2025-03-25] MEDS ORDERED: Sodium Bicarbonate 2.5 MEQ/5 ML SDV ONE (09:02)
[2025-03-25] MEDS ORDERED: Iopamidol 0 ML ONE (09:02)
[2025-03-25] MEDS ORDERED: cefTRIAXone\\ROCEPHIN 1 GM in Sodium Chloride 0.9% 100 ML IVPB SCH (09:15)
== END 2025-03-25 10:55 | disposition home or self-care (01) ==
LOC: SPEC 08:40
PROVIDERS: ATTEND Urology
PROC: 0T25X0Z Change Drainage Device in Kidney, External Approach (ICD-10-PCS; principal; 2025-03-25)
DX: N13.1 Hydronephrosis with ureteral stricture, not elsewhere classified (principal); Z43.6 Encounter for attention to other artificial openings of urinary tract
CPT/HCPCS: 36000; 50387; 75984; C1769; C1894; J0696; J7030; Q9967